=== PATIENT | female | born 1975 | race Caucasian/White ===

== ENCOUNTER 2020-11-12 11:51 | Outpatient (REF) | payer BC, SELFPAY ==
[2020-11-12 13:48] LABS: MANUAL DIFF FLAG NO
[2020-11-12 13:55] LABS: Basophils Absolute Auto 0.1 X10*3/uL (0.0-0.2); Basophils Percent Auto 1.3 % (0-2); Eosinophils Absolute Auto 0.3 X10*3/uL (0.0-0.4); Eosinophils Percent Auto 3.9 % (0-4); Hemoglobin 12.6 g/dl (12.0-16.0); Imm Gran Abs Auto 0.02 X10*3/uL (0.00-0.03); Imm Gran Pct Auto 0.2 % (0.0-0.4); Lymphocytes Absolute Auto 2.3 X10*3/uL (1.2-4.9); Lymphocytes Percent Auto 26.6 % (20-40); Mean Corpuscular HGB Conc 31.5 g/dl (31.0-35.0); Mean Corpuscular Hemoglobin 28.3 pg (27.0-33.0); Mean Corpuscular Volume 89.9 fL (80-98); Mean Platelet Volume 10.2 fL (9.4-12.3); Monocytes Absolute Auto 0.6 X10*3/uL (0.1-1.2); Monocytes Percent Auto 7.2 % (2-11); Neutrophils Absolute Auto 5.3 X10*3/uL (2.0-8.3); Neutrophils Percent Auto 60.8 % (45-73); Platelet Count 354 X10*3/uL (160-400); Red Blood Count 4.45 X10*6/uL (4.20-5.50); Red Cell Distribution Width 13.5 % (11.0-16.0); White Blood Count 8.7 X10*3/uL (4.8-10.8)
[2020-11-12 14:26] LABS: Alanine Aminotransferase 7 U/L (0-31); Albumin Level 3.8 g/dL (3.5-5.0); Alkaline Phosphatase 59 U/L (39-117); Anion Gap 13 (12-20); Aspartate Amino Transferase 10 U/L (5-31); Bilirubin Total 0.3 mg/dL (0.0-1.0); Blood Urea Nitrogen 16 mg/dL (9-16); Calcium 9.1 mg/dL (8.4-10.2); Carbon Dioxide 26 mmol/L (22-29); Chloride 105 mmol/L (96-108); Cholesterol 193 mg/dL; Estimated Glomerular Filt Rate > 60; Glucose Fasting 107 mg/dL (60-99); Potassium 4.1 mmol/L (3.3-5.1); Sodium 140 mmol/L (135-145); Total Protein 6.8 g/dL (6.5-8.0)
[2020-11-15 15:11] LABS: TS Negative Control Passed; TS Panel A 0; TS Panel B 0; TS Positive Control Passed; TSpotTB Negative (SeeBelow)
== END 2020-11-12 11:52 | disposition home or self-care (01) ==
LOC: HO.10HDL 11:51
PROVIDERS: Visit Provider Internal Medicine
DX: Z00.00 Encounter for general adult medical examination without abnormal findings (principal)
CPT/HCPCS: 36415; 80053; 82465; 85025; 86481

== ENCOUNTER 2021-04-08 15:21 | Outpatient (REF) | payer BC, SELFPAY | END 2021-04-08 15:22 | disposition home or self-care (01) | LOC: HO.LNP 15:21 | PROVIDERS: Visit Provider Internal Medicine | DX: J02.9 Acute pharyngitis, unspecified (principal) | CPT/HCPCS: 87071 ==

== ENCOUNTER 2023-06-19 13:54 | Outpatient (REF) | payer BC, SELFPAY ==
[2023-06-19 14:36] LABS: Influenza A PCR NEGATIVE (Negative); Influenza B PCR NEGATIVE (Negative); Resp Syncy Virus RNA Qual PCR NEGATIVE (Negative); SARS COV2 PCR INHOUSE POSITIVE (Negative)
== END 2023-06-19 13:55 | disposition home or self-care (01) ==
LOC: HO.LNP 13:54
PROVIDERS: Visit Provider Internal Medicine
DX: R09.81 Nasal congestion (principal); Z20.822 Contact with and (suspected) exposure to COVID-19
CPT/HCPCS: 0241U

== ENCOUNTER 2023-08-01 14:59 | Outpatient (REF) | payer BC, SELFPAY ==
[2023-08-05 07:18] LABS: TS Negative Control Passed; TS Panel A 0; TS Panel B 0; TS Positive Control Passed; TSpotTB Negative (Negative)
== END 2023-08-01 15:00 | disposition home or self-care (01) ==
LOC: HO.LAB 14:59
PROVIDERS: PCP Internal Medicine; Visit Provider Internal Medicine
DX: Z11.1 Encounter for screening for respiratory tuberculosis (principal)
CPT/HCPCS: 36415; 86481

== ENCOUNTER 2023-09-04 07:31 | Outpatient (REF) | payer BC, SELFPAY ==
[2023-09-04 07:45] LABS: MANUAL DIFF FLAG NO
[2023-09-04 07:52] LABS: Basophils Absolute Auto 0.1 X10*3/uL (0.0-0.2); Basophils Percent Auto 1.2 % (0-2); Eosinophils Absolute Auto 0.3 X10*3/uL (0.0-0.4); Eosinophils Percent Auto 3.5 % (0-4); Hematocrit 42.3 % (37.0-47.0); Hemoglobin 13.3 g/dl (12.0-16.0); Imm Gran Abs Auto 0.01 X10*3/uL (0.00-0.03); Imm Gran Pct Auto 0.1 % (0.0-0.4); Lymphocytes Absolute Auto 2.5 X10*3/uL (1.2-4.9); Lymphocytes Percent Auto 27.4 % (20-40); Mean Corpuscular HGB Conc 31.4 g/dl (31.0-35.0); Mean Corpuscular Hemoglobin 28.2 pg (27.0-33.0); Mean Corpuscular Volume 89.6 fL (80.0-98.0); Mean Platelet Volume 9.1 fL (9.4-12.3); Monocytes Absolute Auto 0.6 X10*3/uL (0.1-1.2); Monocytes Percent Auto 6.1 % (2-11); Neutrophils Absolute Auto 5.7 x10*3/uL (2.0-8.3); Neutrophils Percent Auto 61.7 % (45-73); Platelet Count 336 X10*3/uL (160-400); Red Blood Count 4.72 X10*6/uL (4.20-5.50); Red Cell Distribution Width 13.5 % (11.0-16.0); White Blood Count 9.3 X10*3/uL (4.8-10.8)
[2023-09-04 07:59] LABS: Estimated Average Glucose 111 mg/dL; Hemoglobin A1c % 5.5 % (<6.0)
[2023-09-04 08:16] LABS: Alanine Aminotransferase 8 U/L (0-31); Albumin Level 3.7 g/dL (3.5-5.0); Alkaline Phosphatase 68 U/L (39-117); Anion Gap 14 (12-20); Aspartate Amino Transferase 14 U/L (5-31); Bilirubin Total 0.3 mg/dL (0.0-1.0); Blood Urea Nitrogen 18 mg/dL (9-16); Calcium 9.3 mg/dL (8.4-10.2); Carbon Dioxide 26 mmol/L (22-29); Chloride 105 mmol/L (96-108); Cholesterol 185 mg/dL (<200); Estimated Glomerular Filt Rate > 60; Glucose Fasting 95 mg/dL (60-99); HDL Cholesterol 51 mg/dL (>40); LDL Cholesterol Calculated 106 mg/dL (<100); Potassium 3.9 mmol/L (3.3-5.1); Sodium 141 mmol/L (135-145); Total Protein 7.2 g/dL (6.5-8.0); Triglycerides 143 mg/dL (<150)
== END 2023-09-04 07:32 | disposition home or self-care (01) ==
LOC: HO.LAB 07:31
PROVIDERS: PCP Internal Medicine; Visit Provider Internal Medicine
DX: I10 Essential (primary) hypertension (principal); R73.03 Prediabetes
CPT/HCPCS: 36415; 80053; 80061; 83036; 85025

== ENCOUNTER 2023-09-22 15:47 | Outpatient (REF) | payer BC, SELFPAY ==
[2023-09-22 16:41] LABS: Influenza A PCR POSITIVE (Negative); Influenza B PCR NEGATIVE (Negative); Resp Syncy Virus RNA Qual PCR NEGATIVE (Negative); SARS COV2 PCR INHOUSE NEGATIVE (Negative)
== END 2023-09-22 15:48 | disposition home or self-care (01) ==
LOC: HO.LNP 15:47
PROVIDERS: Visit Provider Internal Medicine
DX: Z11.52 Encounter for screening for COVID-19 (principal); R06.2 Wheezing; R50.9 Fever, unspecified
CPT/HCPCS: 0241U

== ENCOUNTER 2023-11-21 13:57 | Outpatient (REF) | payer BC, SELFPAY ==
[2023-11-21 15:07] LABS: Influenza A PCR NEGATIVE (Negative); Influenza B PCR NEGATIVE (Negative); Resp Syncy Virus RNA Qual PCR NEGATIVE (Negative); SARS COV2 PCR INHOUSE NEGATIVE (Negative)
== END 2023-11-21 13:58 | disposition home or self-care (01) ==
LOC: HO.LNP 13:57
PROVIDERS: Visit Provider Internal Medicine
DX: Z11.52 Encounter for screening for COVID-19 (principal); Z20.822 Contact with and (suspected) exposure to COVID-19; R05.9 Cough, unspecified; R06.2 Wheezing
CPT/HCPCS: 0241U

== ENCOUNTER 2025-01-08 15:19 | Outpatient (AMB) | payer BC, SELFPAY ==
--- NOTE | 2025-01-08 16:05 | A.OFFPC_ITS ---
Vital Signs 01/08/25 16:10 Height 5 ft 6 in Weight 262 lb BMI 42.3 BP 138/82 Blood Pressure Location Lt brachial Position Sitting Pulse 91 Pulse Source Pulse Oximeter Temp 97.6 F Temp Source Axillary Pulse Oximetry (%) 99 Oxygen Delivery Method Room Air Intake Visit Reasons: Routine - see comments Note Teller Required: No Accompanied by: Self / Same As Patient Allergies No Known Allergies Allergy (Verified 01/14/25 07:41) Medication List - Last Reconciled 01/14/25 by Truman Smith MD albuterol sulfate 90 mcg/actuation inhalation lisinopril 5 mg PO DAILY prednisone 20 mg PO DAILY semaglutide (weight loss) (Wegovy) 0.5 mg (0.5 mL) subcut QWEEK Tobacco use date assessed: 01/08/25 Dental Screening Dental Screen Date: 01/08/25 Did you have a dental visit in the last 12 months?: Yes Did you have a dental problem in the last 6 months where you did not have access to dental care?: No [facility] Medical History (Updated 01/14/25 @ 07:43 by Truman Smith MD) Obesity (BMI 30-39.9) Essential hypertension Family History Mother Diabetes Kidney failure Afib Cancer Father No problems noted. Social History Housing: House Patient Tobacco Use Status: Never used Tobacco e-Cigarette/Vaping Use: Never Used service: No Current occupational status: employed Cognitive needs: No Hearing needs: No Vision needs: No Questionnaire PHQ-9 Over the last 2 weeks, how often have you been bothered by any of the following problems? 1. Little interest or pleasure in doing things: not at all 2. Feeling down, depressed, or hopeless: several days 3. Trouble falling or staying asleep, or sleeping too much: not at all 4. Feeling tired or having little energy: not at all 5. Poor appetite or overeating: not at all 6. Feeling bad about yourself - or that you are a failure or have let yourself or your family down: not at all 7. Trouble concentrating on things, such as reading the newspaper or watching television: not at all 8. Moving or speaking so slowly that other people could have noticed. Or the opposite - being so fidgety or restless that you have been moving around a lot more than usual: not at all 9. Thoughts that you would be better off or of hurting yourself in some way: not at all Total score: 1 Depression Screening Interpretation: Negative Depression Screening Done: Yes Source: Developed by Drs. Brian Gutierrez, Marilin Bourgeois, Saud Siddiqui and colleagues, with an educational binh from [employer]. Thrive Questionnaire Date Thrive assessed: 01/08/25 I am a: Patient Within the past 12 months, did the food you bought not last and you didn't have the money to get more?: Never true Within the past 12 months, did you worry whether your food would run out before you got money to buy more?: Never true Do you have trouble paying for medicines?: No Do you have trouble getting transportation to medical appointments?: No Do you have trouble paying your heating and electricity bill?: No Do you have trouble taking care of your child, family member or friend?: No Do you have trouble with day-to-day activities such as bathing, preparing meals, shopping, managing finances, etc.?: No Are you currently unemployed and looking for a job?: No Are you interested in more education?: No Currently or been in a relationship where the following occur: No concerns reported THRIVE Score: 0 AUDIT C Alcohol Use Questionnaire (AUDIT-C) 1. How often do you have a drink containing alcohol?: Never 3. How often do you have six or more drinks on one occasion?: Never Total Score: 0 MEGAN-7 AMB Questionnaire MEGAN-7 Date MEGAN - 7 assessed: 01/08/25 Feeling nervous, anxious, or on edge: 1 = Several days Not being able to stop or control worryin = Not at all Worrying too much about different things: 0 = Not at all Trouble relaxin = Not at all Being so restless that it is hard to sit still: 0 = Not at all Becoming easily annoyed or irritable: 0 = Not at all Feeling afraid as if something awful might happen: 0 = Not at all Total MEGAN-7 score (0-4 normal; 5-9 mild; 10-14 moderate; 15-21 severe): 1 Source: Developed by Drs. Brian Gutierrez, Marilin Bourgeois, Saud Siddiqui and colleagues, with an educational binh from [employer]. Physical exam (Primary Care) Vital Signs: Last Vital Signs Temp 97.6 F 01/08/25 16:10 Pulse 91 01/08/25 16:10 BP 138/82 01/08/25 16:10 Pulse Ox 99 01/08/25 16:10 Oxygen Delivery Method Room Air 01/08/25 16:10 Care Plan Goal for BP management: Blood pressure in range. BMI result Body Mass Index 42.3 BMI Assessment/Plan discussion: High (Wegovy prescribed.) BMI High, discussed plan: lifestyle, weight reduction and dietary Tobacco/Smoking Status: Tobacco use Status Tobacco use date assessed 01/08/25 01/08/25 16:06 Patient Tobacco Use Status Never used Tobacco 01/08/25 16:19 e-Cigarette/Vaping Use Never Used 01/08/25 16:06 PHQ-9: PHQ-9 Score PHQ-9: Total score 1 01/08/25 16:19 Depression Screening Interpretation: Negative Thrive Assessment: Date of Thrive Assessment Date Thrive assessed 01/08/25 01/08/25 16:06 Currently or been in a relationship where the following occur: No concerns reported Coding Level of Care Code New Pt Level 4 (16123) Complex EM visit Add On G2211 Diagnoses Essential hypertension I10 Obesity (BMI 30-39.9) E66.9 Assessment & Plan Assessment & Plan (1) Essential hypertension: Code(s): I10 - Essential (primary) hypertension Category: Medical (2) Obesity (BMI 30-39.9): Code(s): E66.9 - Obesity, unspecified Category: Medical Plan History of Present Illness The patient is a 49-year-old female presenting with follow-up on hypertension. She was initially prescribed amlodipine last year but ceased usage due to inadequate follow-up. Her home and work blood pressure readings are in the 130s to 140s without medication, contrasting with her initial reading of 160/180. Symptoms such as headaches and epistaxis have resolved. She discusses recurrent right leg swelling related to a damaged meniscus and existing osteoarthritis of the knee. Mild interventions like physical therapy and fluid management provide relief. Swelling, specifically in the calf, is noted with exacerbation due to knee injury. The patient seeks advice on weight loss management, noting an inability to maintain weight loss over time. She acknowledges her non-diabetic status but is interested in medication options like Trulicity given her familial diabetes history. Menopausal symptoms, primarily hot flashes and night sweats, disturb her work routine. She considers contacting her FORESTRY TECHNICIAN for hormone therapy guidance. 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 - Struggles with weight management despite trying various diets. - Regular schedules include varied work hours at the EMT role and on the ambulance. - Reports a family history of diabetes. Review of Systems - Cardiovascular: Reports previous headaches, blurred vision during hypertension spikes; currently no related symptoms. - Musculoskeletal: Reports right leg swelling due to torn meniscus and osteoarthritis. - Endocrine: Reports hot flashes and night sweats suggestive of menopausal transition. - General: Reports difficulty with sustained weight loss. - HEENT: Denies current headaches or blurred vision. - Dermatological: Denies any skin or rash issues. - Respiratory: Denies any chronic cough or respiratory issues. Physical Exam General: Cooperative and healthy appearing Nutritional Appearance: Well nourished Orientation/consciousness: Patient oriented x3 Limitations: No limitations Head: Normal to inspection General: Appearance normal, both eyes and all related structures Neck: Normal visual inspection Chest: Normal palpation of entire chest wall Respiratory: Patient reports feeling out of breath when running. ormal respiratory effort Neurology: Patient oriented x3. Reports no headaches, blurred vision, or other neurological symptoms. Results - Previous blood pressure: 160/180. - Current blood pressure: 138/80. Plan I will commence the patient on lisinopril for hypertension management, considering her past amlodipine-induced symptoms and current hypertensive status. We discussed initiating Wegovy for sustainable weight management, contingent on insurance confirmation. I will arrange blood tests for comprehensive metabolic assessment, including thyroid function. Coordinating with her FORESTRY TECHNICIAN, we will explore hormone therapy options to mitigate menopausal effects. An additional Cologuard test is scheduled for colorectal cancer screening. Patient was informed and verbally consented to the use of an ambient scribe for clinic note documentation during this visit. Discussion Notes We reviewed the necessity of ongoing hypertension management with lisinopril, discussing its benefits over amlodipine given her swelling history. I outlined Wegovy's role in weight reduction strategies, despite potential insurance hurdles. Testing will monitor metabolic health, providing clarity on her weight difficulties and any thyroid involvement. We emphasized the importance of resolving menopausal symptoms and the benefits of hormone therapy, ensuring collaborative communication with her FORESTRY TECHNICIAN. Her upcoming Cologuard test un derscores our commitment to preventative colorectal cancer screening. Patient Instructions - Begin taking lisinopril, 5 mg, as prescribed. - Get fasting blood work done as instructed. - Schedule follow-up with FORESTRY TECHNICIAN regarding hormone therapy. - Await instructions regarding Christen, subject to insurance approval. - Complete the Cologuard test once received. - Monitor blood pressure regularly at home. - Report any new symptoms or side effects immediately. Orders: Orders Complete Blood Count no Diff 01/08/25 I10 - Essential (primary) hypertension Lipid Panel 01/08/25 I10 - Essential (primary) hypertension Basic Metabolic Panel 01/08/25 I10 - Essential (primary) hypertension Liver Panel 01/08/25 I10 - Essential (primary) hypertension Thyroid Stimulating Hormone 01/08/25 I10 - Essential (primary) hypertension Referrals Cologuard Test Z12.11 - Encounter for screening for malignant neoplasm of colon Medications: New lisinopril 5 mg PO DAILY 90 tabs 1RF semaglutide (weight loss) (Christen) administer weeks 5 through 8 of therapy 0.5 mg (0.5 mL) subcut QWEEK 2 mL 0RF
[2025-01-08 16:10] VITALS: BP 138/82; PULSE 91; TEMP 36.4; O2SAT 99; BMI 42.3
--- OUTSIDE RECORDS SUMMARY | 2025-01-08 18:04 | XMS_ITS ---
Author Name [facility] Organization Unknown History of Medication Use Medication Directions Dispensed Refills Start Date End Date Stat us Durolane 60 mg/3 mL intra-articular syringe Take 60 mg by intraarticular route. 11/02/2023 active albuterol sulfate 2.5 mg/3 mL (0.083 %) solution for nebulization INHALE 3 ML VIA NEBULIZER EVERY 4 HOURS NEEDED FOR WHEEZING 3 completed albuterol sulfate HFA 90 mcg/actuation aerosol inhaler INHALE 2 PUFFS INTO THE LUNGS 4 TIMES A DAY 3 completed azithromycin 250 mg tablet 3 completed [facility] COVID-19 Antigen Rapid Home Test kit 3 completed naloxone 4 mg/actuation nasal spray USE DIRECTED 3 completed prednisone 50 mg tablet TAKE 1 TABLET BY MOUTH DAILY FOR 4 DAYS 3 completed tobramycin 0.3 % eye drops INSTILL 2 DROPS INTO LEFT EYE 4 TIMES A DAY 5 DAYS 3 completed ibuprofen 800 mg tablet Take 1 tablet 3 times a day by oral route. active levalbuterol HFA 45 mcg/actuation aerosol inhaler TAKE 2 PUFF(S) BY MOUTH EVERY 4-6 HOURS. active levalbuterol HFA 45 mcg/actuation aerosol inhaler TAKE 2 PUFF(S) BY MOUTH EVERY 4-6 HOURS. active omeprazole 20 mg capsule,delayed release TAKE 1 CAPSULE BY MOUTH EVERY DAY active Wixela Inhub 100 mcg-50 mcg/dose powder for inhalation TAKE 1 PUFF(S) BY MOUTH TWICE A DAY active Problems Problem Status Onset Date Problem Type Date of Resoluti on Source Instability of joint of left knee active 2023-07-27 ProblemAct [facility] Osteoarthritis of left knee joint active 2023-08-24 ProblemAct [facility] Derangement of lateral meniscus active 2023-08-24 ProblemAct [facility] Encounters Encounter Type Encounter Reason Primary Diagnosis Location Date Ambulatory [facility] [place] 09/17/2024 Ambulatory [facility] [place] 09/13/2024 Ambulatory [facility] [place] 08/16/2024 Ambulatory [facility] [place] 07/22/2024 Ambulatory [facility] [place] 07/12/2024 Ambulatory [facility] [place] 06/11/2024 Ambulatory [facility] [place] 05/15/2024 Ambulatory [facility] [place] 05/14/2024 Ambulatory [facility] [place] 05/13/2024 Ambulatory [facility] [place] 04/29/2024 Ambulatory [facility] [place] 03/12/2024 Ambulatory [facility] [place] 01/31/2024 Ambulatory [facility] [place] 12/23/2023 Ambulatory [facility] [place] 11/09/2023 Ambulatory [facility] [place] 10/24/2023 Ambulatory [facility] [place] 10/24/2023 Amb[facility] [place] 09/10/2023 [facility] [place] 08/12/2023 [facility]ulatory [facility] [place] 08/09/2023 Ambulatory [facility] [place] 08/02/2023 Ambulatory [facility] [place] 08/02/2023 Ambulatory [facility] [place] 07/27/2023 Ambulatory [facility] [place] 07/26/2023 Ambulatory [facility] [place] 07/26/2023 Ambulatory [facility] [place] 07/20/2023
--- OUTSIDE RECORDS SUMMARY | 2025-01-08 18:04 | XMS_ITS | Data Portability ---
Author Organization [place] [facility] Francie Mclain [place] [place] Address [address] [place] [address] Care Team Providers Care Melt Supervisor Name Role Phone ERIKA GUTHRIE Referring Provider [phone] ERIKA GUTHRIE Primary Care Provider Assessment Encounter Date Assessment Date Assessment LastModified by Organization Details LastModified Time 07/27/2023 07/27/2023 This is a pleasa 47-year-old female with mild degenerative changes of the left knee however she does have provocative testing on Sharmila's test suggestive of meniscus tearing. I had a lengthy discussion with the patient regarding management. We discussed formal nonsteroidal anti-inflammatory program, oral analgesics and topical analgesics as well as cortisone injection. She did opt for an injection of the left knee at today's visit. After verbal consent was given by patient. The procedure was then carried out she tolerated this well. Aftercare instructions were discussed in detail. She did also opt for formal physical therapy. She did not be able to tolerate therapy she should contact my office immediately. I will send her for an MRI in the next 2 weeks due to the cortisone injection seeing if there is any underlying pathology for meniscus tearing if so I may have her see Dr. Gifford for consultation. She is in agreement with the above-noted plan. Patient was seen and evaluated by Dinesh Mejia PA-C in indirect conjuction with Documenting Provider: Leroy Gifford MD . He/She agrees with history, physical examination, tests/diagnostic imaging, and treatment plan. Additional treatment plan discussed with the patient (only initiated if in boldface font) otherwise not applicable. Treatment may include the following; - Provider focused nonsteroidal anti-inflammatory regimen (discussed were the pros, cons, benefits and risks as well as any black box warnings) in patients over 60 years old they should be very cautious in taking these medications due to potential decreased kidney function and or elevated blood pressure. - Analgesic pain medication for pain suppression (discussed were the pros, cons, benefits and risks as well as any black box warnings) - The use of topical pain relieving medication were discussed - The use of ice to decrease inflammation and pain - The use of assistive ambulatory devices for ambulation and fall prevention - Formal specific guided physical therapy program I reviewed my findings at length with the patient today. ? ? ?We discussed the nature and etiology of this problem along with current treatment options. We discussed the expected course and outcomes and what to expect. We also discussed risks and benefits. ? ? ? All of their questions were answered today, and there was exhibited understanding and comprehension of all that was discussed. Time Spent: 10 minutes were spent reviewing previous imaging and charting. ? ? ?10 minutes were spent obtaining patient history. ? ? ?5 minutes were spent on physical exam. ? ? ?5? ? ?minutes were spent explaining diagnosis and assessment. Today's documentation was made using voice recognition software. This note may contain grammatical errors secondary to the software. Not available 07/27/2023 14:42:17 08/24/2023 08/24/2023 Pleasant 47-year -old female following up on her MRI results of her left knee as well as post treatment with cortisone injection at her initial visit on 07/27/2023. Patient stated over 90% improvement . She is doing quite well. She would like to consider viscosupplementation injection and avoid surgery if possible. Will put this through her insurance carrier and schedule her appointment accordingly. Should she have any return of symptoms or worsening symptoms she should contact my office immediately. She can take [id number] pain medication for symptomatic relief. As discussed with the patient she should avoid jumping out of the ambulance to reduce her risk of possible further knee injury. Patient was seen and evaluated by Dinesh Mejia PA-C in indirect conjuction with Documenting Provider: Kodak Angelo MD . He/She agrees with history, physical examination, tests/diagnostic imaging, and treatment plan. Additional treatment plan discussed with the patient (only initiated if in boldface font) otherwise not applicable. Treatment may include the following; - Provider focused nonsteroidal anti-inflammatory regimen (discussed were the pros, cons, benefits and risks as well as any black box warnings) in patients over 60 years old they should be very cautious in taking these medications due to potential decreased kidney function and or elevated blood pressure. - Analgesic pain medication for pain suppression (discussed were the pros, cons, benefits and risks as well as any black box warnings) - The use of topical pain relieving medication were discussed - The use of ice to decrease inflammation and pain - The use of assistive ambulatory devices for ambulation and fall prevention - Formal specific guided physical therapy program I reviewed my findings at length with the patient today. ? ? ?We discussed the nature and etiology of this problem along with current treatment options. We discussed the expected course and outcomes and what to expect. We also discussed risks and benefits. ? ? ? All of their questions were answered today, and there was exhibited understanding and comprehension of all that was discussed. Time Spent: 10 minutes were spent reviewing previous imaging and charting. ? ? ?10 minutes were spent obtaining patient history. ? ? ?5 minutes were spent on physical exam. ? ? ?5? ? ?minutes were spent explaining diagnosis and assessment. Today's documentation was made using voice recognition software. This note may contain grammatical errors secondary to the software. Not available 08/24/2023 15:21:09 11/02/2023 11/02/2023 Diagnosis degene rative joint disease of the left knee has had cortisone injection in the past opted for Durolane injections today's visit. After verbal consent was granted by the patient after discussing the pros, cons, benefits and risk both inherent and unexpected including side effects and untoward reactions. She opted for this. The procedure was then carried out on the left knee. She tolerated the procedure well. Aftercare instructions were discussed in detail. She waited 15 minutes in the waiting room without any untoward effects. She will follow-up in 3 months time with a provider for repeat clinical exam. Should her symptoms not improve or worsen she should contact my office. Aftercare instructions discussed in detail. She is in understanding of these instructions. Patient was seen and evaluated by Dinesh Mejia PA-C in indirect conjuction with Documenting Provider: Kodak Angelo MD . He/She agrees with history, physical examination, tests/diagnostic imaging, and treatment plan. Additional treatment plan discussed with the patient (only initiated if in boldface font) otherwise not applicable. Treatment may include the following; - Provider focused nonsteroidal anti-inflammatory regimen (discussed were the pros, cons, benefits and risks as well as any black box warnings) in patients over 60 years old they should be very cautious in taking these medications due to potential decreased kidney function and or elevated blood pressure. - Analgesic pain medication for pain suppression (discussed were the pros, cons, benefits and risks as well as any black box warnings) - The use of topical pain relieving medication were discussed - The use of ice to decrease inflammation and pain - The use of assistive ambulatory devices for ambulation and fall prevention - Formal specific guided physical therapy program I reviewed my findings at length with the patient today. ? ? ?We discussed the nature and etiology of this problem along with current treatment options. We discussed the expected course and outcomes and what to expect. We also discussed risks and benefits. ? ? ? All of their questions were answered today, and there was exhibited understanding and comprehension of all that was discussed. Time Spent: 10 minutes were spent reviewing previous imaging and charting. ? ? ?10 minutes were spent obtaining patient history. ? ? ?5 minutes were spent on physical exam. ? ? ?5? ? ?minutes were spent explaining diagnosis and assessment. Today's documentation was made using voice recognition software. This note may contain grammatical errors secondary to the software. Not available 11/02/2023 13:35:50 05/14/2024 05/14/2024 48-year-old fema le with osteoarthritis of left knee. She has excellent relief of her pain following a viscosupplementation injection in October of this year. She will monitor her symptoms closely. If they recur and are causing her disability she will contact this office to initiate the authorization process for viscosupplementation injection. Therefore, follow-up is as needed. This patient was seen and evaluated by Dinesh Bernard MS, PA-C in indirect conjunction with documenting/supervisin g pat Angelo MD. He agrees with history, physical examination, tests/diagnostic imaging, and treatment plan. This document was generated using voice recognition software. As a result, there may be unintended spelling, grammatical and/or textual errors. Not available 05/14/2024 11:20:44 09/17/2024 09/17/2024 HPI: Patient presents for Durolane viscosupplementation injection for the treatment of left knee pain. All questions are answered to the patient's satisfaction. Exam: Knee(s) examined to show no sign of infection. Skin is intact. Score of 2 or more on Kellgren Darrin scale. Tenderness to palpation of joint line. Distal checks are intact. Assessment/Plan: Knee pain secondary to osteoarthritis. See the attached procedure note. Follow up in 6 months with me. This patient was seen and evaluated by Dinesh Bernard, , CHELY in indirect conjunction with documenting/supervisin g provider Kodak Angelo MD. He agrees with history, physical examination, tests/diagnostic imaging, and treatment plan. Not available 09/17/2024 15:17:50 Plan of Treatment Reminders Order Date Submit Date Provider Last Modified By Organization Details Last Modified Time Details Appointments FOLLOW UP 2024 02:45P M DINESH BERNARD PA-C Not available Not available Not available Lab None recorded. Referral physical therapist referral - worsening Left knee pain with instabili ty eval and treat 2022 023 [email or web address] Not available 07/27/2023 10:39:14 Procedures None recorded. Surgeries None recorded. Imaging XR, knee, 4 or more view 2023 024 [email or web address], [address], [address], [place], [address], 05/14/2024 11:30:17 XR, knee, 4 or more view 2022 023 [facility], [address], [address], [place], [address], 07/27/2023 12:25:37 MRI, knee, w/o contrast - Left knee pain with instabill ity r/o meniscus tear. defer MRI at least 1-2 week pt had cortisone inj. on 07/27/20232022 023 [facility], [address] [facility], [place], [address], 08/22/2023 12:29:41 Medication Orders Durolane 60 mg/3 mL intra-art icular syringe 2023 024 [email or web address] [id number], [address] [place], [address], 09/17/2024 15:18:21 Durolane 60 mg/3 mL intra-art icular syringe 2023 024 [email or web address] [id number], [address] [place], [address], 11/06/2023 07:21:30 Kenalog 40 mg/mL suspensio n for injection [id number], [address] [place] [address], [address], 11/02/2023 13:13:03 lidocaine (PF) 10 mg/mL (1 %) injection solution [id number], [address] [place], [address], 11/02/2023 13:13:05 Patient TargetsNo targets recorded. Patient Instructions Encounter Date Encounter Id Patient Instructions Last Modified By Organization Details Last Modified Time 07/27/2023 [id number] You have been provided with a cortisone injection in order to reduce the pain and inflammation that you are experiencing. The injection consists of two medications. Cortisone (an anti-inflammatory that will take 48-72 hours to take effect) and Lidocaine (a numbing agent that will last 2-3 hours). Please note that not everyone will have a lasting response following the injection. PATIENT INSTRUCTIONS Once the Lidocaine wears off, you may have an increase in your pain. I recommend icing the affected area for 20 minutes 3-4 times per day. It is recommended that you refrain from any high level activities using the joint or limb that was injected for approximately 24-48 hours. Normal day-to-day activities are generally not a problem. POSSIBLE SIDE EFFECTS Individuals with dark complexions may experience some skin discoloration locally at the site of the injection. There is the possibility of an increase in discomfort within 48 hours following the injection. This is called a ? f lare? . To help minimize the chances of this, please see the post-injection instructions above. There is a less than 1% chance of an infection. If you notice any signs of infection (redness, warmth, drainage, fever greater than 100 degrees) please call our office or contact us through the portal NILA. Not available 07/27/2023 14:42:22 X-rays of the le ft knee 4 view reveal overall well-maintained joint space she has a small calcification to the medial femoral condyle best visualized on AP and Hart view. She has narrowing of the patellofemoral joint space with subchondral sclerosis no acute bony abnormality. Not available 07/27/2023 14:37:43 11/02/2023 [id number] You have been pr ovided with a viscosupplementation injection in order to reduce the pain that you are experiencing from your arthritis. The injection consists of a lubricating injection called hyaluronic acid. Please note that not everyone will have a lasting response following the injection. PATIENT INSTRUCTIONS I recommend icing the affected area for 20 minutes 3-4 times per day. It is recommended that you refrain from any high level activities using the joint or limb that was injected for approximately 24-48 hours. Normal day-to-day activities are generally not a problem. POSSIBLE SIDE EFFECTS Individuals with dark complexions may experience some skin discoloration locally at the site of the injection. There is the possibility of an increase in discomfort within 48 hours following the injection. This is called a ? f lare? . To help minimize the chances of this, please see the post-injection instructions above. There is a less than 1% chance of an infection. If you notice any signs of infection (redness, warmth, drainage, fever greater than 100 degrees) please call our office or contact us through the portal NILA. Not available 11/02/2023 13:13:22 Reason for Referral Physical Therapist Referral for Instability of joint of left knee worsening Left knee pain with instability eval and treat Referring Physician: Dinesh Mejia, Orthopedic Surgery, Encounter Date: 07/27/2023 Results Created Date Observation Date Name Description Value Unit Range Abnormal Flag Note LastModifiedBy Organization Detail LastModifiedTime 08/22/2008/15/2023 MRI, knee, w/o contr ast No observ ation record ed. [facility] [address], [place], [address], 08/22/2023 12:29:41 Result Notes None recorded. Problems Name Problem SNOMED Code Status Onset Date Resolution Date Notes Provider Name and Address Organization Details Recorded Time Instability of joint of left knee 8656158275333 106 Active 2022 DINESH MEJIA PA-C [address], [place], [address], [place] [facility], P 3 09:24:02 Osteoarthri tis of left knee joint [id number] 09 Active 2022 DINESH MEJIA PA-C [address], [facility] [place], [address], [place] [facility], P 3 15:18:00 Derangement of lateral meniscus 66185294 Active 2022 DINESH MEJIA PA-C [address], [facility] [place], [address], [place] [facility], P 3 15:18:16 Problem Notes None recorded. Procedures Surgical History Date Name Laterality Status Provider Name and Address Organization Details Recorded Time 4 Durolane Knee Inj w/US completed DINESH BERNARD PA-C [address], [place], [address], [place] [facility], [facility] 09/17/2024 15:17:29 4 Durolane Knee Inj completed DINESH MEJIA PA-C [address], [place], [address], [place] [facility], P 11/02/2023 13:26:59 3 Knee Joint/Bursa Asp & Inj completed DINESH MEJIA PA-C [address], [place], [address], [place] [facility], P 07/27/2023 14:38:41 Imaging Results Imaging Date Name Status LastModified by Organiz ation Details LastModified Time 08/15/2023 MRI, knee, w/o contrast completed [facility] [address] [facility], [place], [address], 08/22/2023 12:29:41 Procedure Notes None recorded. Medical Equipment None Reported. Allergies No known drug allergies Medications Name Sig Start Date Stop Date Status Note LastModified by Organization Details LastModified Time prednison e 10 mg tablet TAKE 4 TABLETS DAILY FOR 2 DAYS. DECREASE BY 1 TABLET EVERY OTHER DAY UNTIL FINISHED active Not Available Not Available No t Available albuterol sulfate 2.5 mg/3 mL (0.083 %) solution for nebulizat ion INHALE 3 ML VIA NEBULIZE R EVERY 4 HOURS NEEDED FOR WHEEZING 07/27 completed Not Available Not Available Not Available azithromy esau 250 mg tablet 07/27 completed Not Available Not Available Not Available ibuprofen 800 mg tablet Take 1 tablet 3 times a day by oral route. active Not Available Not Available No t Available benzonata te 200 mg capsule active Not Available Not Available Not Available prednison e 20 mg tablet active Not Available Not Available Not Available amlodipin e 5 mg tablet active Not Available Not Available Not Available Kenalog 40 mg/mL suspensio n for injection Take 1.5 mL by injectio n route. 11/02 completed Not Available Not Available Not Available benzonata te 100 mg capsule TAKE 1 CAPSULE BY MOUTH THREE TIMES A DAY 07/27 completed Not Available Not Available Not Available tobramyci n 0.3 % eye drops INSTILL 2 DROPS INTO LEFT EYE 4 TIMES A DAY 5 DAYS 07/27 completed Not Available Not Available Not Available prednison e 50 mg tablet TAKE 1 TABLET BY MOUTH DAILY FOR 4 DAYS 07/27 completed Not Available Not Available Not Available omeprazol e 20 mg capsule,d elayed release TAKE 1 CAPSULE BY MOUTH EVERY DAY active Not Available Not Available No t Available albuterol sulfate HFA 90 mcg/actua tion aerosol inhaler INHALE 2 PUFFS INTO THE LUNGS 4 TIMES A DAY active Not Available Not Available No t Available levalbute rol HFA 45 mcg/actua tion aerosol inhaler TAKE 2 PUFF(S) BY MOUTH EVERY 4-6 HOURS. active Not Available Not Available No t Available Euflexxa 10 mg/mL (mw 2.4-3.6 million) intra-art icular syringe active Covermym eds Euflexxa rejected Not Available Not Available Not Available lidocaine (PF) 10 mg/mL (1 %) injection solution Take 2 mL by injectio n route. 11/02 completed Not Available Not Available Not Available naloxone 4 mg/actuat ion nasal spray USE DIRECTED 07/27 completed Not Available Not Available Not Available Durolane 60 mg/3 mL intra-art icular syringe Take 60 mg by intraart icular route. 2023 active Not Available Not Available Not Avai lable Wixela Inhub 100 mcg-50 mcg/dose powder for inhalatio n TAKE 1 PUFF(S) BY MOUTH TWICE A DAY active Not Available Not Available No t Available [facility] COVID-19 Antigen Rapid Home Test kit 07/27 completed Not Available Not Available Not Available Vitals Date Recorded Body height Body mass index (BMI) Body weight Provider Name and Address Organization Details Last Updated DateTime 07/27/2023 165.1 cm 41.6 kg/m2 505097.09 g [facility] [place] 07/27/2023 09:08:36 Date Recorded Body height Provider Name an d Address Organization Details Last Updated DateTime 08/24/2023 165.1 cm [facility], [facility] 08/24/2023 08:57:01 Date Recorded Body height Provider Name an d Address Organization Details Last Updated DateTime 11/02/2023 165.1 cm [facility], P 11/02/2023 13:13:06 Date Recorded Body height Body mass index (BMI) Body weight Provider Name and Address Organization Details Last Updated DateTime 05/14/2024 165.1 cm 41.3 kg/m2 765916.91 g Nelly Laura [place] - [facility], P 05/14/2024 10:46:37 Social History Question Answer Notes LastModified by Organizat ion Details LastModified Time Tobacco Smoking Status Never Smoker Ramila Segura null, [place] - [facility], [facility] 07/27/2023 09:08:48 What Is Your Level Of Alcohol Consumption? None Information not available 07/27/2023 Do You Use Any Illicit Or Recreational Drugs? No Information not available 07/27/2023 Do You Or Have You Ever Used Any Other Forms Of Tobacco Or Nicotine? No Information not available 07/27/2023 Sex: Unknown Functional Status None recorded. Mental Status None recorded. Family History Relationship Description Onset Age of this Age Resolved Age Notes LastModified by Organization Details LastModified Time Mother Arthritis Not available 07/27/2023 09:09:03 Mother Family history of malignant neoplasm Not available 2022 09:09:17 Mother Diabetes mellitus Not available 2022 09:09:28 Mother Heart disease Not available 2022 09:09:38 Mother Hypercholest erolemia [email or web address] Not available 11/02 13:07:54 Mother Hypertensive disorder [email or web address] Not available 11/02 13:07:54 Father Family history of malignant neoplasm Not available 2022 09:09:17 Medical History Condition Response Coronary Artery Disease N Gout N Hyperthyroidism N MRSA N Blood Transfusion N Emphysema N Depression N COPD N Hypothyroidism N Pacemaker N Vascular Disease N Gastrointestinal Disease N Anxiety Disorder N Autoimmune disease N Arthritis N Cancer N Stroke N High Cholesterol N Neurologic Disorder N Liver Disease N Organ Transplant N Rheumatoid Arthritis N Arrhythmia N Fibromyalgia N Kidney Disease N Allergies/Hayfever N Adverse Reaction to Anesthesia N Thyroid Problems N Anemia N Brain Injury N Heart Attack ([place]) N Osteopenia N Diabetes N Bleeding Disorder N Seizures/Epilepsy N AIDS/HIV N Congestive Heart Failure (CHF) N Asthma N Amputation N Reflux/GERD N Sleep Apnea N Hepatitis N Aneurysm N Heart Disease N Pulmonary Embolism N Hypertension N Osteoporosis N Gynecological HistoryNo gynecological history recorded. Obstetrics History GPAL:G 0 P 0 0 0 0 Past Encounters Encounter ID Performer Location Encounter Start Date Encounter Closed Date Diagnosis/Indication Diagnosis SNOMED-CT Code Diagnosis ICD10 Code Diagnosis Note [id number] [facility] [address] [place] [address] 07/27/2023 08:31:32 07/27/2023 09:30:45 Pain of left knee joint [id number] 45465 M25.562 Instabilit y of joint of left knee 7688269228 510277 M25.362 [id number] MD CELESTINA Castro [facility] [address] [address] 08/24/2023 08:42:38 08/24/2023 09:15:48 Osteoarthritis of left knee joint 5073516402 86096 M17.12 Derangemen t of lateral meniscus 38506814 M23.309 Follow-up visit [id number] [id number] MD CELESTINA Castro [facility] [address] [place] [address] 11/02/2023 13:07:38 11/02/2023 13:37:33 Osteoarthritis of left knee joint 1039348456 23019 M17.12 [id number] MD CELESTINA Castro [address] [address] 05/14/2024 10:12:45 05/14/2024 11:30:17 Pain of left knee region 3597193853 48446 M25.562 Osteoarthr itis of left knee joint 3514700483 12937 M17.12 [id number] MD CELESTINA Castro [address] [address] 09/17/2024 15:00:10 09/17/2024 15:22:15 Osteoarthritis of left knee joint 2960776779 14778 M17.12 Health Concerns Section Related Observation LastModified by Organization Detai ls LastModified Time None Recorded Concern Status LastModified by Organization Details LastModified Time None Recorded Advance Directives Directive None Recorded Payers Encounter Date Sequence Insurance Name Policy Number Policy Larkin Covered Member ID Larkin Member ID Guarantor Name 07/27/2023 1 [place] [id number] Citlalli Vigila [id number] Citlalli Grewal 08/24/2023 1 [place] [id number] Citlalli Coburn Grewal [id number] Citlalli Grewal 11/02/2023 1 [place] [id number] Citlalli Grewal [id number] Citlalli Grewal 05/14/2024 1 [place] [id number] Citlalli Grewal [id number] Citlalli Grewal 09/17/2024 1 [place] [id number] Citlalli Grewal [id number] Citlalli Grewal 09/17/2024 2 [facility] [id number] Citlalli Grewal [id number] Citlalli Grewal Notes Date Note Type Note Provider Name and Address Organization Details Recorded Time 3 text/html Pleasant 47-year-old female here for evaluation of chronic left knee pain over the last 2 years previously treated at [facility] with a cortisone injection. She describes the pain is medial posterior nature. 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 She states sometimes she feels unstable she takes [id number] pain medication which gives her some relief. She denies any physical injury that she can recall. Denies any previous surgery here for evaluation treatment. X-rays of the left knee 4 view reveal overall well-maintained joint space she has a small calcification to the medial femoral condyle best visualized on AP and Hart view. She has narrowing of the patellofemoral joint space with subchondral sclerosis no acute bony abnormality. DINESH MEJIA PA-C [address] [place] [address], [phone], [place] - [facility] 07/27/2023 14:43:10 3 text/html Assessment & Plan: Prior initial visit on 07/27/2023This is a pleasant 47-year-old female with mild degenerative changes of the left knee however she does have provocative testing on Sharmila's test suggestive of meniscus tearing. I had a lengthy discussion with the patient regarding management.We discussed formal nonsteroidal anti-inflammatory program, oral analgesics and topical analgesics as well as cortisone injection. She did opt for an injection of the left knee at today's visit. After verbal consent was given by patient. The procedure was then carried out she tolerated this well. Aftercare instructions were discussed in detail. She did also opt for formal physical therapy. She did not be able to tolerate therapy she should contact my office immediately.I will send her for an MRI in the next 2 weeks due to the cortisone injection seeing if there is any underlying pathology for meniscus tearing if so I may have her see Dr. Gifford for consultation. She is in agreement with the above-noted plan. [facility] [id number] [place] [id number] ___Patient: CITLALLI GREWAL Irish Panda./Age/Sex: 1975 - 47 - FUnit#: [id number] Location/Status: SPDIMRI/REG CLIAccount#: [id number] Mnemonic/Ordering Site: [facility]/SPMAINOrdering Physician: DINESH MEJIA MR Knee LT WO - 08/15/23 -Report Status:SignedHISTORY: Left knee instability, rule out meniscal tearTECHNIQUE: Standard MRI of the left knee. Coronal, axial and sagittal fatsaturation T2 weighted scans, coronal and sagittal proton density scans andcoronal T1 weighted scans were performed.COMPARISON: None available.FINDINGS:MENISC I: Complex predominantly horizontal tear of the anterior horn andanterior aspect of the body of the lateral meniscus. The medial meniscus isintact.CARTILAGE:Large area of full-thickness cartilage loss of the lateral patellarcartilage. Moderate area of full-thickness cartilage loss of the lateraltibial plateau. Grade II chondromalacia of the medial tibial femoralcompartment.TENDON S AND LIGAMENTS: Moderate strain of the popliteus muscle near themusculocutaneous junction. The medial collateral ligament is unremarkable.The iliotibial band, lateral collateral ligament proper, and biceps femoristendon are normal. The cruciate ligaments, quadriceps and patellar tendonsare intact.BONES AND SOFT TISSUES: No bone contusion, fracture or dislocation isidentified. Multiple small ganglion cysts at the posterior medial jointline.FLUID: Moderate joint effusion with synovitisIMPRESSION:1. Complex predominantly horizontal tear of the anterior horn and anterioraspect of the body of the lateral meniscus.2. Moderate strain of the popliteus muscle near the musculocutaneousjunction. 3. Large area of full-thickness cartilage loss of the lateral patellarcartilage.4. Moderate area of full-thickness cartilage loss of the lateral tibialplateau.5. Grade II chondromalacia of the medial tibial femoral compartment.Dictating Physician: CELINE JOSE MDElectronically Signed by: CELINE JOSE [facility] Date/Time: 08/21/23 1127Sign date/Time: 08/21/23 1132 HPI:Patient states since her initial states 90% improvement . She states she is doing quite well takes occasional ibuprofen here for follow-up and discussion regarding MRI results. She states she notices her symptoms worsen when she jumps out of the ambulance at work . DINESH MEJIA PA-C [address] [facility],[place] [address], [place], [phone], [place] - [facility] 08/24/2023 15:21:46 4 text/html Left knee degenerative joint disease here for Durolane injection of the left knee. No interval change in history since her last visit pain is medial nature is worse with walking as well as work activity. DINESH MEJIA PA-C [address], [place], [phone], [place] - [facility] 11/02/2023 13:37:23 4 text/html 48-year-old female presents for recheck of left knee. She reports that her October 2023 viscosupplementation injection has been effective at helping to control her pain. She reports that with overexertion or especially running and running on stairs she has mild discomfort. She reports that it responds nicely to the occasional dose of ibuprofen. Overall, she is very pleased with the results of viscosupplementation and the effects are lasting. DINESH BERNARD PA-C [address], [place], [phone], [place] [facility] 05/14/2024 11:21:37 OBGyn Episode No OBEpisode recorded.
== END 2025-01-08 16:35 | disposition home or self-care (01) ==
LOC: HO.HMCHD 15:20
PROVIDERS: PCP Internal Medicine; Visit Provider Internal Medicine
DX: I10 Essential (primary) hypertension (principal); E66.9 Obesity, unspecified

== ENCOUNTER 2025-01-08 15:19 | Outpatient (REF) | payer BC, OTHER, SELFPAY ==
[2025-01-08 17:03] LABS: Hematocrit 40.7 % (37.0-47.0); Hemoglobin 13.2 g/dl (12.0-16.0); Mean Corpuscular HGB Conc 32.4 g/dl (31.0-35.0); Mean Corpuscular Hemoglobin 28.3 pg (27.0-33.0); Mean Corpuscular Volume 87.2 fL (80.0-98.0); Mean Platelet Volume 9.1 fL (9.4-12.3); Platelet Count 342 X10*3/uL (160-400); Red Blood Count 4.67 X10*6/uL (4.20-5.50); White Blood Count 9.9 X10*3/uL (4.8-10.8)
[2025-01-08 17:31] LABS: Alanine Aminotransferase 13 U/L (0-31); Alkaline Phosphatase 88 U/L (39-117); Anion Gap 15 (12-20); Aspartate Amino Transferase 20 U/L (5-31); Bilirubin Direct 0.1 mg/dL (0.0-0.5); Bilirubin Total 0.3 mg/dL (0.0-1.0); Blood Urea Nitrogen 21 mg/dL (9-16); Calcium 9.8 mg/dL (8.4-10.2); Carbon Dioxide 26 mmol/L (22-29); Chloride 106 mmol/L (96-108); Cholesterol 217 mg/dL (<200); Estimated Glomerular Filt Rate > 60; Glucose Random 95 mg/dL (60-115); HDL Cholesterol 52 mg/dL (>40); LDL Cholesterol Calculated 119 mg/dL (<100); Potassium 4.2 mmol/L (3.3-5.1); Sodium 143 mmol/L (135-145); Total Protein 7.7 g/dL (6.5-8.0); Triglycerides 230 mg/dL (<150)
== END 2025-01-08 15:20 | disposition home or self-care (01) ==
LOC: HO.LAB 15:19
PROVIDERS: PCP Internal Medicine; Visit Provider Internal Medicine
DX: I10 Essential (primary) hypertension (principal)
CPT/HCPCS: 36415; 80048; 80061; 80076; 84443; 85027